=== PATIENT | female | born 1955 | race Caucasian/White ===

== ENCOUNTER → 2017-01-29 | Outpatient (CLI) | payer MEDICARE ==
--- NOTE | 2017-01-30 10:52 | MM ---
Reason for exam: screening (asymptomatic). History: Patient is postmenopausal. Physical Findings: A clinical breast exam by your physician is recommended on an annual basis and results should be correlated with mammographic findings. MG Screening Mammo w CAD Bilateral CC and MLO view(s) were taken. The breast tissue is heterogeneously dense. This may lower the sensitivity of mammography. There is no discrete abnormality. No significant changes when compared with prior studies. ASSESSMENT: Negative, BI-RAD 1 RECOMMENDATION: Routine screening mammogram of both breasts in 1 year.
== END | disposition home or self-care (01) ==
LOC: RADMAMWWP 13:32
PROVIDERS: ATTEND Family Medicine
DX: Z12.31 Encounter for screening mammogram for malignant neoplasm of breast (principal)

== ENCOUNTER → 2018-07-03 | Outpatient (CLI) | payer MEDICARE ==
--- NOTE | 2018-07-04 10:47 | MM ---
Reason for exam: screening (asymptomatic). Last mammogram was performed 1 year and 5 months ago. History: Patient is postmenopausal. Took hormonal contraceptives for 7 months. Physical Findings: A clinical breast exam by your physician is recommended on an annual basis and results should be correlated with mammographic findings. MG 3D Screening Mammo W/Cad Bilateral CC and MLO view(s) were taken. Prior study comparison: January 29, 2017, bilateral MG screening mammo w CAD. The breast tissue is heterogeneously dense. This may lower the sensitivity of mammography. Finding #1: There is a 8 mm equal density (isodense), obscured oval mass in the upper quadrant, central position of the left breast. Finding #2: There are typically benign calcifications in both breasts. There is a chronic nodularity in the left breast, stable. ASSESSMENT: Incomplete: need additional imaging evaluation, BI-RAD 0 RECOMMENDATION: Special view mammogram and ultrasound of the left breast. [facility] will attempt to contact patient to return for supplemental views and ultrasound.
== END | disposition home or self-care (01) ==
LOC: RADMAMWWP 10:55
PROVIDERS: ATTEND Family Medicine
DX: Z12.31 Encounter for screening mammogram for malignant neoplasm of breast (principal)
CPT/HCPCS: 77063; 77067

== ENCOUNTER → 2018-07-17 | Outpatient (CLI) | payer MEDICARE ==
--- NOTE | 2018-07-18 07:53 | MM ---
Reason for exam: additional evaluation requested from abnormal screening. Last mammogram was performed less than 1 month ago. History: Patient is postmenopausal. Took hormonal contraceptives for 7 months. Physical Findings: Nurse did not find any significant physical abnormalities on exam. MG 3D Work Up W/Cad LT Spot compression CC, spot compression MLO, and LM view(s) were taken of the left breast. Prior study comparison: July 03, 2018, bilateral MG 3d screening mammo w/cad. January 29, 2017, bilateral MG screening mammo w CAD. Finding: There is a 4 mm circumscribed round mass in the upper quadrant, anterior position of the left breast that persists on additional views. These results were verbally communicated with the patient and result sheet given to the patient on 07/17/18. ASSESSMENT: Incomplete: need additional imaging evaluation, BI-RAD 0 RECOMMENDATION: Ultrasound of the left breast.
--- NOTE | 2018-07-18 07:54 | USB ---
Reason for exam: additional evaluation requested from abnormal screening. History: Patient is postmenopausal. Took hormonal contraceptives for 7 months. US Breast Workup Limited LT Left limited breast ultrasound including focal area of concern, retroareolar and axilla demonstrates a 0.4 x 0.5 x 0.3cm oval, cystic lesion at 11 o'clock. These results were verbally communicated with the patient and result sheet given to the patient on 07/17/18. ASSESSMENT: Benign, BI-RAD 2 RECOMMENDATION: Return to routine screening mammogram schedule for both breasts.
== END | disposition home or self-care (01) ==
LOC: RADMAMWWP 14:13
PROVIDERS: ATTEND Family Medicine
DX: R92.8 Other abnormal and inconclusive findings on diagnostic imaging of breast (principal)
CPT/HCPCS: 77065; 76642; G0279; 77061

== ENCOUNTER → 2023-08-12 | Outpatient (CLI) | payer MEDICARE | END | disposition home or self-care (01) | LOC: LABWHC1 11:39 | PROVIDERS: ATTEND Family Medicine | DX: I49.9 Cardiac arrhythmia, unspecified (principal); R53.81 Other malaise | CPT/HCPCS: 36415; 93005 ==

== ENCOUNTER → 2023-08-21 | Outpatient (CLI) | payer MEDICARE ==
--- NOTE | 2023-08-23 08:43 | MM ---
Reason for Exam: Screening (asymptomatic). Last mammogram was performed 1 year(s) and 2 month(s) ago. Patient History: Menarche at age 8. First Full-Term at age 17. Hysterectomy at age 26. Postmenopausal. Hormonal Contraceptives for 7 months. Risk Values: Jayleen 5 year model risk: 1.4%. NCI Lifetime model risk: 4.0%. Prior Study Comparison: 07/03/2018 Bilateral Screening Mammogram, [facility]. 07/17/2018 Left Diagnostic Mammogram, [facility]. 06/29/2022 Bilateral MG 3D screening mammo w/cad, [facility]. Tissue Density: There are scattered areas of fibroglandular density. Findings: Analyzed By CAD. Right breast: There is no suspicious group of microcalcifications or new suspicious mass. Left breast: There is no suspicious group of microcalcifications or new suspicious mass. Overall Assessment: Negative, BI-RAD 1 Management: Screening Mammogram of both breasts in [address] [facility] will attempt to contact patient to return for supplemental views and ultrasound if indicated. Patient should continue monthly self-breast exams. A clinical breast exam by your physician is recommended on an annual basis. This exam should not preclude additional follow-up of suspicious palpable abnormalities. Note on Jayleen scores and lifetime risk: 1. A Jayleen score greater than 3% is considered moderate risk. If this is the case, consider specialist referral to assess eligibility for a risk reducing agent. 2. If overall lifetime risk for the development of breast cancer is 20% or higher, the patient may qualify for future screening with alternating mammogram and breast MRI. Electronically signed and approved by: Noel Tellez DO
== END | disposition home or self-care (01) ==
LOC: RADMAMWWP 11:11
PROVIDERS: ATTEND Family Medicine
DX: Z12.31 Encounter for screening mammogram for malignant neoplasm of breast (principal); Z78.0 Asymptomatic menopausal state
CPT/HCPCS: 77063; 77067

== ENCOUNTER 2023-11-06 19:49 | Observation (INO) | payer MEDICARE ==
--- NOTE | 2023-11-06 20:18 | CT ---
EXAMINATION TYPE: CODE STROKE: CT brain wo contr DATE OF EXAM: 11/06/2023 COMPARISON: None HISTORY: 68 year-old female with right side weakness/slurred speech TECHNIQUE: Examination was done in axial plane without intravenous contrast. Coronal and sagittal r econstructions performed. CT DLP: 1141.1 mGycm Automated exposure control for dose reduction was used. FINDINGS: There is no evidence of acute intracranial hemorrhage, acute ischemic changes, mass, mass-effect, or extra-axial fluid collection. There is no effacement of cerebral sulci or basal subarachnoid cister ns. There is no hydrocephalus. There is no midline shift. Dorantes-white matter distinction is preserv ed. Mild white matter hypodensities in both cerebral hemispheres. Trace mucosal thickening ethmoid air cells. Leftward nasal septal deviation. Orbits and globes are in tact. Mastoid air cells are well pneumatized. IMPRESSION: Mild chronic burden of chronic small vessel ischemic disease. No acute intracranial abnormality seen.
[2023-11-06 20:19] LABS: Glucose,Whole Blood 93 mg/dL (70-110)
--- NOTE | 2023-11-06 20:25 | CT ---
EXAMINATION TYPE: CT angio head neck DATE OF EXAM: 11/06/2023 COMPARISON: CT brain same date HISTORY: 68-year-old female right side weakness/ slurred speech TECHNIQUE: Contiguous axial scanning of the head and neck performed with IV Contrast, patient injecte d with 65ml mL of Isovue 370. Coronal/sagittal reconstructions performed. 3-D reconstructions genera aly on a dedicated independent workstation. CT DLP: 1783.2 mGycm Automated exposure control for dose reduction was used. FINDINGS: Neck: Mild atherosclerotic arch calcifications. Conventional arch vessel branching anatomy. The vertebral arteries are codominant and patent throughout the course. The bilateral common carotid arteries are patent. The left internal carotid artery is patent. The right ICA shows atherosclerotic calcification and plaque at the level of the bulb with moderate, just over 50% proximal ICA stenosis, thin cuts series 405 image 242. NASCET criteria is utilized. Head: The bilateral vertebral and basilar artery as well as the remainder of the posterior circulation is p atent. Mild atherosclerotic calcifications within the bilateral carotid siphons. Patent bilateral posterior communicating arteries. The remainder of the anterior circulation is patent. No significant narrowing seen. No aneurysmal change identified. Dural venous sinuses are patent. IMPRESSION: 1. NECK: MODERATE, JUST OVER 50% PROXIMAL RIGHT ICA STENOSIS. 2. HEAD: NO LARGE VESSEL INTRACRANIAL ARTERIAL OCCLUSION, SIGNIFICANT STENOSIS, OR ANEURYSMAL CHANGE IS SEEN.
[2023-11-06 20:29] LABS: Basophils # (A) 0.1 k/uL (0-0.2); Basophils % (A) 1 %; Eosinophils # (A) 0.4 k/uL (0-0.7); Eosinophils % (A) 5 %; HCT 34.5 % (34.0-46.0); HGB 11.2 gm/dL (11.4-16.0); Lymphocytes # (A) 2.6 k/uL (1.0-4.8); Lymphocytes % (A) 34 %; MCH 29.5 pg (25.0-35.0); MCHC 32.4 g/dL (31.0-37.0); MCV 91.3 fL (80.0-100.0); Mean Platelet Volume 7.9; Monocytes # (A) 0.6 k/uL (0-1.0); Monocytes % (A) 7 %; Neutrophils # (A) 3.9 k/uL (1.3-7.7); Neutrophils % (A) 51 %; Platelet Count 277 k/uL (150-450); RBC 3.79 m/uL (3.80-5.40); RDW 13.9 % (11.5-15.5); WBC 7.7 k/uL (3.8-10.6)
[2023-11-06 20:46] LABS: ALT 22 U/L (4-34); African American GFR (CKD) 66 (>60 ml/min/1.73 sqM); Anion Gap 5 mmol/L; Blood Urea Nitrogen 32 mg/dL (7-17); Calcium 8.5 mg/dL (8.4-10.2); Carbon Dioxide 25 mmol/L (22-30); Chloride 106 mmol/L (98-107); Creatine Kinase 107 U/L (30-135); Glucose 90 mg/dL (74-99); Non-African American GFR(CKD) 58 (>60 ml/min/1.73 sqM); Sodium 136 mmol/L (137-145); Total Bilirubin 0.6 mg/dL (0.2-1.3)
[2023-11-06 20:58] LABS: INR 0.9 (<1.2)
[2023-11-06 21:05] LABS: Partial Thromboplastin Time 21.3 sec (22.0-30.0); Prothrombin Time 9.9 sec (10.0-12.5)
--- NOTE | 2023-11-06 21:08 | XR ---
EXAMINATION TYPE: XR chest 2V DATE OF EXAM: 11/06/2023 COMPARISON: None HISTORY: 68-year-old female confusion, altered mental status, right-sided weakness TECHNIQUE: PA and lateral views FINDINGS: Heart borderline in size. Atherosclerotic arch calcifications. Rounded retrocardiac density. No conso lidation or pleural effusion. IMPRESSION: There may be an underlying sizable hiatal hernia. Correlate for any associated symptoms. No definite acute process otherwise seen.
[2023-11-06 21:14] LABS: AST 41 U/L (14-36); Albumin 3.8 g/dL (3.5-5.0); Alkaline Phosphatase 44 U/L (38-126); Potassium 5.5 mmol/L (3.5-5.1); Total Protein 6.4 g/dL (6.3-8.2)
--- NOTE | 2023-11-06 23:21 | ED ---
Neuro HPI - General Chief Complaint: Neuro Symptoms/Deficit Stated Complaint: Stroke Time Seen by Provider: 11/06/23 19:56 Source: EMS Mode of arrival: EMS - History of Present Illness Is the patient presenting with stroke symptoms?: Yes Last Known Well Date: 11/06/23 Last Known Well Time: 19:00 Onset/Timin -: hour(s) Location: speech, right face, right arm History of same: No Place: home Severity: moderate Quality: weak Improves With: none Worsens With: none On Anticoagulants: No Context: sudden onset Associated Symptoms: denies other symptoms - Related Data Home Medications: Home Medications Medication Instructions Recorded Confirmed Omeprazole [PriLOSEC] 20 mg PO DAILY 10/29/13 11/06/23 Loratadine [Claritin] 10 mg PO DAILY 03/31/14 11/06/23 Atorvastatin [Lipitor] 20 mg PO DAILY 11/06/23 11/06/23 Candesartan/Hydrochlorothiazid 1 tab PO DAILY 11/06/23 11/06/23 [Candesartan-Hctz 32-12.5 mg Tb] Ibuprofen [Motrin] 800 mg PO BID 11/06/23 11/06/23 Ibuprofen [Motrin] 800 mg PO DAILY PRN 11/06/23 11/06/23 Magnesium 250 mg PO HS 11/06/23 11/06/23 Multivitamins, Thera [Multivitamin 1 tab PO DAILY 11/06/23 11/06/23 (formulary)] Vision Shield Supplement 1 tab PO DAILY 11/06/23 11/06/23 Vitamin B Complex 1 cap PO DAILY 11/06/23 11/06/23 Vitamin C/Biotin [Hair, Skin and 1 tab PO DAILY 11/06/23 11/06/23 Nails Chew] Allergies/Adverse Reactions: Allergies Allergy/AdvReac Type Severity Reaction Status Date / Time gabapentin [From Neurontin] Allergy Anaphylaxis Verified 11/06/23 20:27 loperamide HCl Allergy Anaphylaxis Verified 11/06/23 20:27 [From Imodium A-D] morphine Allergy HIVES Verified 11/06/23 20:27 nickel [Nickel] Allergy Rash/Hives Verified 11/06/23 20:27 trimethobenzamide HCl Allergy Anaphylaxis Verified 11/06/23 20:27 [From Tigan] codeine AdvReac Nausea & Verified 11/06/23 20:27 Vomiting niacin AdvReac flushing Verified 11/06/23 20:27 Review of Systems ROS Statement: Those systems with pertinent positive or pertinent negative responses have been documented in the HPI. ROS Other: All systems not noted in ROS Statement are negative. Constitutional: Denies: fever, chills, weakness Eyes: Denies: vision change Respiratory: Denies: cough, dyspnea Cardiovascular: Denies: chest pain, palpitations, edema Gastrointestinal: Denies: abdominal pain, vomiting, diarrhea Genitourinary: Denies: dysuria, hematuria Musculoskeletal: Denies: back pain Skin: Denies: rash Neurological: Reports: weakness, other. Denies: headache General Exam General appearance: alert, in no apparent distress Head exam: Present: atraumatic, normocephalic Eye exam: Present: normal appearance. Absent: scleral icterus, conjunctival injection Neck exam: Present: normal inspection Respiratory exam: Present: normal lung sounds bilaterally. Absent: respiratory distress, wheezes, rales, rhonchi, stridor, accessory muscle use Cardiovascular Exam: Present: regular rate, normal rhythm, normal heart sounds. Absent: systolic murmur, diastolic murmur, rubs, gallop GI/Abdominal exam: Present: soft. Absent: distended, tenderness, guarding, rebound, rigid, mass Extremities exam: Present: normal inspection, normal capillary refill. Absent: pedal edema, calf tenderness Back exam: Present: normal inspection. Absent: CVA tenderness (R), CVA tenderness (L) Neurological exam: Present: alert, oriented X3, CN II-XII intact. Absent: motor sensory deficit Skin exam: Present: warm, dry, intact, normal color. Absent: rash Stroke MDM - Lab Data Result diagrams: 11/06/23 20:14 11/06/23 20:14 Lab Results 11/06/23 11/06/23 11/06/23 Range/Units 20:14 20:14 20:14 WBC 7.7 (3.8-10.6) k/uL RBC 3.79 L (3.80-5.40) m/uL Hgb 11.2 L (11.4-16.0) gm/dL Hct 34.5 (34.0-46.0) % MCV 91.3 (80.0-100.0) fL MCH 29.5 (25.0-35.0) pg MCHC 32.4 (31.0-37.0) g/dL RDW 13.9 (11.5-15.5) % Plt Count 277 (150-450) k/uL MPV 7.9 Neutrophils % 51 % Lymphocytes % 34 % Monocytes % 7 % Eosinophils % 5 % Basophils % 1 % Neutrophils # 3.9 (1.3-7.7) k/uL Lymphocytes # 2.6 (1.0-4.8) k/uL Monocytes # 0.6 (0-1.0) k/uL Eosinophils # 0.4 (0-0.7) k/uL Basophils # 0.1 (0-0.2) k/uL PT 9.9 L (10.0-12.5) sec INR 0.9 (<1.2) APTT 21.3 L (22.0-30.0) sec Sodium 136 L (137-145) mmol/L Potassium 5.5 H (3.5-5.1) mmol/L Chloride 106 (98-107) mmol/L Carbon Dioxide 25 (22-30) mmol/L Anion Gap 5 mmol/L BUN 32 H (7-17) mg/dL Creatinine 1.00 (0.52-1.04) mg/dL Est GFR (CKD-EPI)AfAm 66 (>60 ml/min/1.73 sqM) Est GFR (CKD-EPI)NonAf 58 (>60 ml/min/1.73 sqM) Glucose 90 (74-99) mg/dL POC Glucose (mg/dL) (70-110) mg/dL POC Glu Escrow Secretary ID Calcium 8.5 (8.4-10.2) mg/dL Total Bilirubin 0.6 (0.2-1.3) mg/dL AST 41 H (14-36) U/L ALT 22 (4-34) U/L Alkaline Phosphatase 44 (38-126) U/L Creatine Kinase 107 (30-135) U/L Troponin I (0.000-0.034) ng/mL Total Protein 6.4 (6.3-8.2) g/dL Albumin 3.8 (3.5-5.0) g/dL 11/06/23 11/06/23 Range/Units 20:14 20:17 WBC (3.8-10.6) k/uL RBC (3.80-5.40) m/uL Hgb (11.4-16.0) gm/dL Hct (34.0-46.0) % MCV (80.0-100.0) fL MCH (25.0-35.0) pg MCHC (31.0-37.0) g/dL RDW (11.5-15.5) % Plt Count (150-450) k/uL MPV Neutrophils % % Lymphocytes % % Monocytes % % Eosinophils % % Basophils % % Neutrophils # (1.3-7.7) k/uL Lymphocytes # (1.0-4.8) k/uL Monocytes # (0-1.0) k/uL Eosinophils # (0-0.7) k/uL Basophils # (0-0.2) k/uL PT (10.0-12.5) sec INR (<1.2) APTT (22.0-30.0) sec Sodium (137-145) mmol/L Potassium (3.5-5.1) mmol/L Chloride (98-107) mmol/L Carbon Dioxide (22-30) mmol/L Anion Gap mmol/L BUN (7-17) mg/dL Creatinine (0.52-1.04) mg/dL Est GFR (CKD-EPI)AfAm (>60 ml/min/1.73 sqM) Est GFR (CKD-EPI)NonAf (>60 ml/min/1.73 sqM) Glucose (74-99) mg/dL POC Glucose (mg/dL) 93 (70-110) mg/dL POC Glu [employer] Secretary ID Kwasi, Kasia Calcium (8.4-10.2) mg/dL Total Bilirubin (0.2-1.3) mg/dL AST (14-36) U/L ALT (4-34) U/L Alkaline Phosphatase (38-126) U/L Creatine Kinase (30-135) U/L Troponin I <0.012 (0.000-0.034) ng/mL Total Protein (6.3-8.2) g/dL Albumin (3.5-5.0) g/dL Past Medical History Past Medical History: Asthma, Fibromyalgia, GERD/Reflux, Hypertension, Osteoarthritis (OA) Additional Past Medical History / Comment(s): severe seasonal allergies History of Any Multi-Drug Resistant Organisms: None Reported Past Surgical History: Adenoidectomy, Appendectomy, Bladder Surgery, Cholecystectomy, Hernia Repair, Hysterectomy, Joint Replacement, Orthopedic Surgery, Tonsillectomy Additional Past Surgical History / Comment(s): right oophorectomy,knee surg., pelvic surg. after childbirth. RIGHT KNEE REPLACEMENT ON 11/12/13., TOTAL LEFT KNEE REPLACEMENT ON 04/08/14 Past Anesthesia/Blood Transfusion Reactions: No Reported Reaction Additional Past Anesthesia/Blood Transfusion Reaction / Comment(s): spinal didn't take completely in past Past Psychological History: No Psychological Hx Reported Past Alcohol Use History: None Reported Past Drug Use History: None Reported Course Vital Signs 11/06/23 11/06/23 11/06/23 19:50 20:10 22:13 Pulse Rate 92 94 90 Respiratory 18 16 18 Rate Blood Pressure 158/88 147/93 132/93 O2 Sat by Pulse 96 96 95 Oximetry Disposition Clinical Impression: Transient cerebral ischemia Disposition: HOME SELF-CARE Condition: Good Is patient prescribed a controlled substance at d/c from ED?: No Referrals: Philip Lee DO [Primary Care Provider] - 1-2 days
[2023-11-06] MEDS: ASPIRIN 325 MG TAB PO STA (23:35)
[2023-11-06] MEDS: SODIUM CHLORIDE 0.9% 1,000 ML IV SCH (23:37)
[2023-11-07] MEDS: DOCUSATE 100 MG CAP PO SCH (00:31)
[2023-11-07 04:22] LABS: Basophils # (A) 0.1 k/uL (0-0.2); Basophils % (A) 1 %; Eosinophils # (A) 0.3 k/uL (0-0.7); Eosinophils % (A) 4 %; HCT 34.4 % (34.0-46.0); HGB 10.8 gm/dL (11.4-16.0); Lymphocytes # (A) 2.1 k/uL (1.0-4.8); Lymphocytes % (A) 29 %; MCH 28.9 pg (25.0-35.0); MCHC 31.4 g/dL (31.0-37.0); Mean Platelet Volume 7.8; Monocytes # (A) 0.6 k/uL (0-1.0); Monocytes % (A) 8 %; Neutrophils % (A) 55 %; Platelet Count 272 k/uL (150-450); RBC 3.74 m/uL (3.80-5.40); RDW 13.9 % (11.5-15.5); WBC 7.2 k/uL (3.8-10.6)
[2023-11-07 04:31] LABS: African American GFR (CKD) >90 (>60 ml/min/1.73 sqM); Anion Gap 5 mmol/L; Blood Urea Nitrogen 29 mg/dL (7-17); Calcium 8.7 mg/dL (8.4-10.2); Carbon Dioxide 25 mmol/L (22-30); Chloride 107 mmol/L (98-107); Glucose 92 mg/dL (74-99); Magnesium 1.9 mg/dL (1.6-2.3); Non-African American GFR(CKD) 86 (>60 ml/min/1.73 sqM); Sodium 137 mmol/L (137-145)
[2023-11-07] MEDS: ASPIRIN 325 MG TAB PO SCH (08:23)
[2023-11-07 10:24] LABS: Chol/HDL Ratio 2.63 Ratio; LDL Cholesterol,Calculated 77.3 mg/dL (0.0-131.0)
--- NOTE | 2023-11-07 10:53 | P.HPIM ---
History of Present Illness H&P Date: 11/07/23 Chief Complaint: Right sided Weakness, aphasia History of present illness; Danisha Quijano 68-year-old female with past medical history of hypertension hyperlipidemia presents with transient ischemic attack. Patient's symptoms began suddenly last evening around 7 PM with sweating and aphasia and facial motor deficit. She appeared to family with right-sided facial droop, right arm weakness and incoherent mumbling. Symptoms continued for 6 hours it was noted by EMS blood pressure to be 180/100. Vision remained intact and had no reported fall. She had no confusion or headache. Today she is back to her stated baseline with speech and muscle strength. Patient notes strong family history in father with multiple TIA. She reports no other symptoms at this time. Initial lab work done in the ER showed Hgb 10.8, BUN 29, Trop 3x neg Head CT - no acute process, mild chronic burden of small vessel disease CT angiogram head and neck neck slightly greater than 50% proximal right ICA stenosis, had shows no acute process stenosis or aneurysm Chest x-ray - no acute process - EKGno ST elevations or T wave abnormalities or arrhythmia noted Patient admitted to internal medicine service REVIEW OF SYSTEMS: CONSTITUTIONAL: No fever, no malaise, no fatigue. HEENT: No recent visual problems or hearing problems. Denied any sore throat. CARDIOVASCULAR: No chest pain, orthopnea, PND, no palpitations, no syncope. PULMONARY: No shortness of breath, no cough, no hemoptysis. GASTROINTESTINAL: No diarrhea, no nausea, no vomiting, no abdominal pain. NEUROLOGICAL: as per HPI HEMATOLOGICAL: Denies any bleeding or petechiae. GENITOURINARY: Denies any burning micturition, frequency, or urgency. MUSCULOSKELETAL/RHEUMATOLOGICAL: Denies any joint pain, swelling, or any muscle pain. ENDOCRINE: Denies any polyuria or polydipsia. The rest of the 14-point review of systems is negative. PHYSICAL EXAMINATION: GENERAL: The patient is alert and oriented x3, not in any acute distress. Well developed, well nourished. HEENT: Pupils are round and equally reacting to light. EOMI. No scleral icterus. No conjunctival pallor. Normocephalic, atraumatic. No pharyngeal erythema. No thyromegaly. CARDIOVASCULAR: S1 and S2 present. No murmurs, rubs, or gallops. PULMONARY: Chest is clear to auscultation, no wheezing or crackles. ABDOMEN: Soft, nontender, nondistended, normoactive bowel sounds. No palpable organomegaly. MUSCULOSKELETAL: No joint swelling or deformity. EXTREMITIES: No cyanosis, clubbing, or pedal edema. NEUROLOGICAL: Right sided Planter flexion weakness 4/5 strength. Gross neurological examination did not reveal any other focal deficits. SKIN: No rashes. Assessment and plan TIA Head CT - no acute process, mild chronic burden of small vessel disease CT angiogram head and neck neck slightly greater than 50% proximal right ICA stenosis, had shows no acute process stenosis or aneurysm Chest x-ray - no acute process - EKGno ST elevations or T wave abnormalities or arrhythmia noted - Troponin 3 times negative Glucose within normal limits - start aspirin - ordered 2D ECHO Neuro consulted, awaiting recs Chronic conditions # Hypertension - hold home medication for permissive htn #Hyperlipidemia Continue home medication #GERD - continue home medication # Seasonal allergies Continue home medication Monitor vital signs Monitor CBC Monitor CMP Continue telemetry monitoring Labs and medication were reviewed.. Continue same treatment. Continue with symptomatic treatment. Resume home medication. Monitor labs and vitals. DVT and GI prophylaxis. Further recommendations as per clinical course of the patient Dictation was produced using [employer] dictation software. please excuse any grammatical, word or spelling errors. Past Medical History Past Medical History: Asthma, CVA/TIA, Fibromyalgia, GERD/Reflux, Hypertension, Osteoarthritis (OA) Additional Past Medical History / Comment(s): severe seasonal allergies History of Any Multi-Drug Resistant Organisms: None Reported Past Surgical History: Adenoidectomy, Appendectomy, Bladder Surgery, Cholecystectomy, Hernia Repair, Hysterectomy, Joint Replacement, Orthopedic Surgery, Tonsillectomy Additional Past Surgical History / Comment(s): right oophorectomy,knee surg., pelvic surg. after childbirth. RIGHT KNEE REPLACEMENT ON 11/12/13., TOTAL LEFT KNEE REPLACEMENT ON 04/08/14 Past Anesthesia/Blood Transfusion Reactions: No Reported Reaction Additional Past Anesthesia/Blood Transfusion Reaction / Comment(s): spinal didn't take completely in past Past Psychological History: No Psychological Hx Reported Smoking Status: Never smoker Past Alcohol Use History: None Reported Past Drug Use History: None Reported Medications and Allergies Home Medications Medication Instructions Recorded Confirmed Type Omeprazole [PriLOSEC] 20 mg PO DAILY 10/29/13 11/06/23 History Loratadine [Claritin] 10 mg PO DAILY 03/31/14 11/06/23 History Atorvastatin [Lipitor] 20 mg PO DAILY 11/06/23 11/06/23 History Candesartan/Hydrochlorothiazid 1 tab PO DAILY 11/06/23 11/06/23 History [Candesartan-Hctz 32-12.5 mg Tb] Ibuprofen [Motrin] 800 mg PO BID 11/06/23 11/06/23 History Ibuprofen [Motrin] 800 mg PO DAILY PRN 11/06/23 11/06/23 History Magnesium 250 mg PO HS 11/06/23 11/06/23 History Multivitamins, Thera [Multivitamin 1 tab PO DAILY 11/06/23 11/06/23 History (formulary)] Vision Shield Supplement 1 tab PO DAILY 11/06/23 11/06/23 History Vitamin B Complex 1 cap PO DAILY 11/06/23 11/06/23 History Vitamin C/Biotin [Hair, Skin and 1 tab PO DAILY 11/06/23 11/06/23 History Nails Chew] Allergies Allergy/AdvReac Type Severity Reaction Status Date / Time gabapentin [From Neurontin] Allergy Anaphylaxis Verified 11/06/23 20:27 loperamide HCl Allergy Anaphylaxis Verified 11/06/23 20:27 [From Imodium A-D] morphine Allergy HIVES Verified 11/06/23 20:27 nickel [Nickel] Allergy Rash/Hives Verified 11/06/23 20:27 trimethobenzamide HCl Allergy Anaphylaxis Verified 11/06/23 20:27 [From Tigan] codeine AdvReac Nausea & Verified 11/06/23 20:27 Vomiting niacin AdvReac flushing Verified 11/06/23 20:27 Physical Exam Vitals: Vital Signs Temp Pulse Pulse Resp BP BP Pulse Ox 11/07/23 08:30 88 18 11/07/23 08:24 97.4 F L 88 18 125/63 95 11/07/23 04:00 97.8 F 84 18 122/66 95 11/07/23 01:57 84 16 11/07/23 00:58 99 11/07/23 00:00 98.6 F 84 16 123/67 99 11/06/23 23:40 89 16 134/79 99 11/06/23 22:13 90 18 132/93 95 11/06/23 20:10 94 16 147/93 96 11/06/23 19:50 92 18 158/88 96 Intake and Output 11/06/23 11/07/23 11/07/23 22:59 06:59 14:59 Intake Total 250 Balance 250 Intake: Oral 250 Other: Voiding Method Toilet Toilet # Voids 1 Weight 101.287 kg 99.3 kg Results CBC & Chem 7: 11/07/23 03:50 11/07/23 03:50 Labs: Abnormal Lab Results - Last 24 Hours (Table) 11/06/23 11/06/23 11/06/23 Range/Units 20:14 20:14 20:14 RBC 3.79 L (3.80-5.40) m/uL Hgb 11.2 L (11.4-16.0) gm/dL PT 9.9 L (10.0-12.5) sec APTT 21.3 L (22.0-30.0) sec Sodium 136 L (137-145) mmol/L Potassium 5.5 H (3.5-5.1) mmol/L BUN 32 H (7-17) mg/dL AST 41 H (14-36) U/L HDL Cholesterol (40.00-60.00) mg/dL 11/07/23 11/07/23 Range/Units 03:50 03:50 RBC 3.74 L (3.80-5.40) m/uL Hgb 10.8 L (11.4-16.0) gm/dL PT (10.0-12.5) sec APTT (22.0-30.0) sec Sodium (137-145) mmol/L Potassium (3.5-5.1) mmol/L BUN 29 H (7-17) mg/dL AST (14-36) U/L HDL Cholesterol 61.70 H (40.00-60.00) mg/dL Thrombosis Risk Factor Assmnt - Choose All That Apply Any of the Below Risk Factors Present?: Yes Each Factor Represents 1 point: Obesity (BMI >25) Other Risk Factors: Yes Each Risk Factor Represents 2 Points: Age 61-74 years Other congenital or acquired thrombophilia - If yes, enter type in comment: No Thrombosis Risk Factor Assessment Total Risk Factor Score: 3 Thrombosis Risk Factor Assessment Level: Moderate Risk Assessment and Plan (1) Transient cerebral ischemia Current Visit: Yes Status: Acute Code(s): G45.9 - TRANSIENT CEREBRAL ISCHEMIC ATTACK, UNSPECIFIED SNOMED Code(s): 680327982
[2023-11-07] MEDS: ACETAMINOPHEN TAB 325 MG TAB PO PRN (12:56)
--- NOTE | 2023-11-07 14:08 | CT ---
EXAMINATION TYPE: CT lumbar spine wo con CT DLP: 1328.2 mGycm, Automated exposure control for dose reduction was used. DATE OF EXAM: 11/07/2023 1:30 PM COMPARISON: None. CLINICAL INDICATION:Female, 68 years old with history of low back pain with leg weakness; PHH, back p ain TECHNIQUE: Multiple axial images were obtained from the midportion of T11 through the sacroiliac leonor nts. Soft tissue and bone windows in coronal and sagittal planes were obtained and reviewed. Contrast used: mL of , (None, if empty). Oral contrast used: (None, if empty). FINDINGS: Alignment: There are 5 lumbar type vertebral bodies with grade 1 anterolisthesis of L4 on L5 alignmen t.. Bone: No evidence of fracture is identified. Multilevel degeneration changes with osteophyte formati on, disc space narrowing, facet joint arthropathy. Discs: T12-L1: No spinal canal or neural foraminal stenosis is identified. L1-L2: No spinal canal or neural foraminal stenosis is identified. L2-L3: No spinal canal or neural foraminal stenosis is identified. L3-L4: No spinal canal or neural foraminal stenosis is identified. L4-L5: Grade 1 anterolisthesis with facet arthropathy and disc bulging result with mild spinal canal stenosis and mild bilateral neural foraminal stenosis. L5-S1: Facet joint arthropathy and disc bulging result with mild spinal canal stenosis and moderate l eft and mild right bilateral neural foraminal stenosis. Other: Scattered colonic diverticula. Nonobstructing left renal calculi partially in the [id number] w. IMPRESSION: 1. No evidence for spinal fracture. 2. Grade 1 anterolisthesis of L4 and L5 no evidence for spondylolysis. 3. Mild multilevel degeneration changes of the spine.
--- NOTE | 2023-11-07 14:35 | P.CNNES ---
History of Present Illness Consult date: 11/07/23 Requesting physician: Jm Humphrey Reason for Consult: stroke History of Present Illness: This is a 68-year-old woman who presented emergency department because of speech difficulty. Stated that yesterday around 7 PM she felt very sweaty over the face throughout the body and then had difficulty getting her words out even though she knew what she wanted to say. Also she was notified by her family member that she was having a blank stare. Therefore EMS was called and was soon she was eval by EMS she had right facial droop and right arm weakness that was felt by EMS. Denies any history of stroke in the past. She states she has chronic lower back pain and her is buckle and she was eval by Dr. Haile in the past and she had EMG and was told she had nerve damage and to continue with therapy. She had bilateral knee replacement. She continues to have leg weakness due to the buckling of her legs. Denies of chronic lower back pain. Denies of urinary or bowel incontinence. Denies any loss of consciousness is with her leg weakness denies any history of seizure. She does have underlying history of hypertension, hyperlipidemia. She is not on any antiplatelets. She is a former tobacco use and last use was 1998. She feels her symptoms has resolved. Some of the workup during this hospital visit consisted of: Lipid panel as triglyceride is 115, cholesterol 162, LDL 77 and HDL is 61 Calcium, magnesium, creatinine are within normal limits. Most recent sodium is 137. CT of the head is reported as mild chronic burden of chronic small vessel ischemic disease. No acute intracranial abnormality seen. I personally reviewed the CT and agree with the report. CT Angiography of the head is reported as no large vessel intracranial arterial occlusion, significant stenosis or aneurysm changes seen. CT angiography of the neck read as moderate just over 50% proximal right ICA stenosis. ED team seems the patient had transient ischemic attack since it was felt her symptoms has resolved. Neuro IV thrombolytics since the patient's symptoms has improved and risk outweigh the benefit. Review of Systems The positive and negative as per HPI. Past Medical History Past Medical History: Asthma, CVA/TIA, Fibromyalgia, GERD/Reflux, Hypertension, Osteoarthritis (OA) Additional Past Medical History / Comment(s): severe seasonal allergies History of Any Multi-Drug Resistant Organisms: None Reported Past Surgical History: Adenoidectomy, Appendectomy, Bladder Surgery, Cholecystectomy, Hernia Repair, Hysterectomy, Joint Replacement, Orthopedic Surgery, Tonsillectomy Additional Past Surgical History / Comment(s): right oophorectomy,knee surg., pelvic surg. after childbirth. RIGHT KNEE REPLACEMENT ON 11/12/13., TOTAL LEFT KNEE REPLACEMENT ON 04/08/14 Past Anesthesia/Blood Transfusion Reactions: No Reported Reaction Additional Past Anesthesia/Blood Transfusion Reaction / Comment(s): spinal d idn't take completely in past Past Psychological History: No Psychological Hx Reported Smoking Status: Never smoker Past Alcohol Use History: None Reported Past Drug Use History: None Reported Medications and Allergies Home Medications Medication Instructions Recorded Confirmed Type Omeprazole [PriLOSEC] 20 mg PO DAILY 10/29/13 11/06/23 History Loratadine [Claritin] 10 mg PO DAILY 03/31/14 11/06/23 History Atorvastatin [Lipitor] 20 mg PO DAILY 11/06/23 11/06/23 History Candesartan/Hydrochlorothiazid 1 tab PO DAILY 11/06/23 11/06/23 History [Candesartan-Hctz 32-12.5 mg Tb] Ibuprofen [Motrin] 800 mg PO BID 11/06/23 11/06/23 History Ibuprofen [Motrin] 800 mg PO DAILY PRN 11/06/23 11/06/23 History Magnesium 250 mg PO HS 11/06/23 11/06/23 History Multivitamins, Thera [Multivitamin 1 tab PO DAILY 11/06/23 11/06/23 History (formulary)] Vision Shield Supplement 1 tab PO DAILY 11/06/23 11/06/23 History Vitamin B Complex 1 cap PO DAILY 11/06/23 11/06/23 History Vitamin C/Biotin [Hair, Skin and 1 tab PO DAILY 11/06/23 11/06/23 History Nails Chew] Allergies Allergy/AdvReac Type Severity Reaction Status Date / Time gabapentin [From Neurontin] Allergy Anaphylaxis Verified 11/06/23 20:27 loperamide HCl Allergy Anaphylaxis Verified 11/06/23 20:27 [From Imodium A-D] morphine Allergy HIVES Verified 11/06/23 20:27 nickel [Nickel] Allergy Rash/Hives Verified 11/06/23 20:27 trimethobenzamide HCl Allergy Anaphylaxis Verified 11/06/23 20:27 [From Tigan] codeine AdvReac Nausea & Verified 11/06/23 20:27 Vomiting niacin AdvReac flushing Verified 11/06/23 20:27 Physical Examination - Vital Signs Vital Signs: Vital Signs Temp Pulse Pulse Resp BP BP Pulse Ox 11/07/23 11:42 72 18 120/67 97 11/07/23 08:30 88 18 11/07/23 08:24 97.4 F L 88 18 125/63 95 11/07/23 04:00 97.8 F 84 18 122/66 95 11/07/23 01:57 84 16 11/07/23 00:58 99 11/07/23 00:00 98.6 F 84 16 123/67 99 11/06/23 23:40 89 16 134/79 99 11/06/23 22:13 90 18 132/93 95 11/06/23 20:10 94 16 147/93 96 11/06/23 19:50 92 18 158/88 96 Intake and Output 11/06/23 11/07/23 11/07/23 22:59 06:59 14:59 Intake Total 250 118 Balance 250 118 Intake: Oral 250 118 Other: Voiding Method Toilet Toilet # Voids 1 Weight 101.287 kg 99.3 kg GENERAL: The patient is Sitting in a recliner chair and is not in acute distress. NEUROLOGICAL: Higher mental function: The patient is awake, alert, oriented to self, place and time. Patient is following commands. No aphasia and no neglect. Cranial nerves: The pupils are round, equal and reactive to light and accommodation. Visual glover are full to confrontation throughout. Extraocular movement is intact no nystagmus is noted. Facial sensation is normal to touch throughout. The facial strength is normal throughout. Hearing is normal bilaterally to hand rub. Tongue is midline and moved [id number] without any difficulty. No dysarthria is noted. Shoulder shrug is normal bilaterally. Motor: The strength is right lower extremity is 4+. Otherwise 5 over 5 throughout. Normal tone and bulk. Cerebellum: Normal finger to nose bilaterally. Sensation: Sensation is normal to touch throughout. Reflexes (right/left): 2+ throughout. Plantars are downgoing bilaterally. Results - Laboratory Findings CBC and BMP: 11/07/23 03:50 11/07/23 03:50 Abnormal Lab Findings: Abnormal Labs 11/06/23 11/06/23 11/06/23 20:14 20:14 20:14 RBC 3.79 L Hgb 11.2 L PT 9.9 L APTT 21.3 L Sodium 136 L Potassium 5.5 H BUN 32 H AST 41 H HDL Cholesterol 11/07/23 11/07/23 03:50 03:50 RBC 3.74 L Hgb 10.8 L PT APTT Sodium Potassium BUN 29 H AST HDL Cholesterol 61.70 H Assessment and Plan Assessment: This is a 68-year-old woman who present emergency department because of yesterday she felt she was sweating at around 7 PM and then difficulty getting her words out as well as was told by her family members she had a blank stare. When she was eval by EMS she had right arm weakness and right facial droop. Symptoms has improved but on my examination she had right lower extremity weakness. Probable acute ischemic stroke with symptoms of expressive aphasia, right facial droop and right-sided weakness and the patient continues to have right lower extremity weakness. Mild to moderate Right ICA stenosis of just above 50% on CTA. This is asymptomatic and would not contribute patient's symptoms. Recurrent leg weakness and states has buckling of her feet and she had workup as an outpatient with EMG and was told she had nerve damage by her outpatient neurologist and feels there is improvement with physical therapy Bilateral knee replacement Underlying history of hypertension Hyperlipidemia Ex tobacco use and last use was 1998 Plan: Patient was given aspirin 325 once in the ED. Then was started on aspirin 325 daily. I started the patient on Plavix 75 mg daily. Prior to this the patient was not on any antiplatelet. Patient was started on Lipitor 20 mg daily but I increased it to 40 mg daily for secondary stroke prophylaxis I changed the order of MRI from without to with and without 2D echo was ordered and is pending Hemoglobin A1c is ordered I ordered CT lumbar spine since the patient continues to have right lower extremity weakness to rule out any severe stenosis in the lumbar region especially with the recurrent leg weakness. Also because of her episode of blank stare was notified by yesterday by her family member I ordered a routine EEG to assess if there is any discharges or seizure Continue neurochecks Cardiac monitoring PT OT and MARITIME PILOT are consulted Will defer the rest of the medical management to primary team For DVT prophylaxis I started the patient on subcu heparin 5000 units every 12 hours Plan discussed with the patient and her at bedside Thank for the consultation Time with Patient: Greater than 30
[2023-11-07] MEDS: CLOPIDOGREL 75 MG TAB PO SCH (15:38)
[2023-11-07] MEDS: LORATADINE 10 MG TAB PO SCH (15:38)
[2023-11-07] MEDS: ATORVASTATIN 20 MG TAB PO SCH (16:39)
[2023-11-07] MEDS: MAGNESIUM OXIDE 400 MG TAB PO SCH (20:15)
[2023-11-07] MEDS: HEPARIN SODIUM,PORCINE 5,000 UNIT/ML 1 ML VIAL SQ SCH (20:15)
--- NOTE | 2023-11-08 01:37 | EEG ---
ELECTROENCEPHALOGRAM REPORT CLINICAL HISTORY: This is a 68-year-old woman with episode of blank stare and confusion. The video EEG is obtained to evaluate for seizure epileptiform activity. RELEVANT MEDICATION: The patient is not on any antiepileptic drugs. DESCRIPTION: Wakefulness and drowsiness are obtained. During awake state, the posterior- dominant rhythm consists of [id number] voltage of 9.5 to 10 hertz activity that is well modulated and well sustained. There is no physiological stage 2 sleep architecture. There is no focal slowing. Interictal and ictal is none. ACTIVATION PROCEDURE: Photic stimulation did not evoke a posterior driving response. There is no abnormality during the photic stimulation. Hyperventilation is not performed. CLINICAL INTERPRETATION: This is a normal routine EEG. There is no focal slowing, epileptiform discharge, or seizure on the EEG. A normal routine EEG does not rule out an underlying epilepsy. Clinical correlation is recommended. MONAE / YOLY: [id number] / MTDD
[2023-11-08] MEDS: PANTOPRAZOLE 40 MG TABLET PO SCH (06:17)
[2023-11-08] MEDS: FOLIC ACID-VIT B COMPLEX-VIT C 1 CAP PO SCH (08:19)
[2023-11-08] MEDS: ATORVASTATIN 40 MG TAB PO SCH (08:19)
[2023-11-08 08:32] LABS: Basophils # (A) 0.1 k/uL (0-0.2); Basophils % (A) 1 %; Eosinophils # (A) 0.3 k/uL (0-0.7); Eosinophils % (A) 5 %; HCT 36.9 % (34.0-46.0); HGB 12.1 gm/dL (11.4-16.0); Lymphocytes # (A) 1.6 k/uL (1.0-4.8); Lymphocytes % (A) 32 %; MCHC 32.7 g/dL (31.0-37.0); MCV 91.7 fL (80.0-100.0); Mean Platelet Volume 7.6; Monocytes # (A) 0.4 k/uL (0-1.0); Monocytes % (A) 7 %; Neutrophils # (A) 2.6 k/uL (1.3-7.7); Neutrophils % (A) 52 %; Platelet Count 298 k/uL (150-450); RBC 4.03 m/uL (3.80-5.40); RDW 13.9 % (11.5-15.5); WBC 5.1 k/uL (3.8-10.6)
[2023-11-08 08:53] LABS: ALT 48 U/L (4-34); AST 52 U/L (14-36); African American GFR (CKD) >90 (>60 ml/min/1.73 sqM); Albumin 3.9 g/dL (3.5-5.0); Alkaline Phosphatase 67 U/L (38-126); Anion Gap 4 mmol/L; Blood Urea Nitrogen 24 mg/dL (7-17); Carbon Dioxide 26 mmol/L (22-30); Chloride 107 mmol/L (98-107); Glucose 88 mg/dL (74-99); Non-African American GFR(CKD) 84 (>60 ml/min/1.73 sqM); Potassium 4.3 mmol/L (3.5-5.1); Sodium 137 mmol/L (137-145); Total Bilirubin 0.5 mg/dL (0.2-1.3); Total Protein 6.4 g/dL (6.3-8.2)
[2023-11-08] MEDS ORDERED: NON FORMULARY DRUG (Vitamin C/Biotin [Hair, Skin And Nails Chew] 1 EACH Tab.Chew) PO SCH (09:00)
--- NOTE | 2023-11-08 09:43 | P.PN ---
Subjective Progress Note Date: 11/08/23 Principal diagnosis: TIA Danisha Quijano 68-year-old female with past medical history of hypertension, hyperlipidemia presents with transient ischemic attack. Patient's symptoms bega n suddenly last evening around 7 PM with sweating and aphasia and facial motor deficit. She appeared to family with right-sided facial droop, right arm weakness and incoherent mumbling. Symptoms continued for 6 hours it was noted by EMS blood pressure to be 180/100. Vision remained intact and had no reported fall. She had no confusion or headache. Today she is back to her stated baseline with speech and muscle strength. Patient notes strong family history in father with multiple TIA. She reports no other symptoms at this time. 11-08-23 Patient seen at bedside, no further episodes of weakness, or aphasia. No other complaints. She is awaiting Echo and MR hetal. REVIEW OF SYSTEMS: All Systems reviewed and pertinent positives and negatives noted in HPI, all other symptoms are negative The rest of the 14-point review of systems is negative. PHYSICAL EXAMINATION: GENERAL: The patient is alert and oriented x3, not in any acute distress. Well developed, well nourished. HEENT: Pupils are round and equally reacting to light. EOMI. No scleral icterus. No conjunctival pallor. Normocephalic, atraumatic. No pharyngeal erythema. No thyromegaly. CARDIOVASCULAR: S1 and S2 present. No murmurs, rubs, or gallops. PULMONARY: Chest is clear to auscultation, no wheezing or crackles. ABDOMEN: Soft, nontender, nondistended, normoactive bowel sounds. No palpable organomegaly. MUSCULOSKELETAL: No joint swelling or deformity. EXTREMITIES: No cyanosis, clubbing, or pedal edema. NEUROLOGICAL: Right sided Planter flexion weakness 4/5 strength. Gross neurological examination did not reveal any other focal deficits. SKIN: No rashes. Assessment and plan TIA Head CT - no acute process, mild chronic burden of small vessel disease CT angiogram head and neck neck slightly greater than 50% proximal right ICA stenosis, had shows no acute process stenosis or aneurysm Chest x-ray - no acute process - EKGno ST elevations or T wave abnormalities or arrhythmia noted - Troponin 3 times negative Glucose within normal limits, HbA1c 5.7 - start aspirin, plavix, and increase Lipitor, per neuro - CT [place] spine for LE weakness no acute process - EEG - normal - 2D ECHO - no acute process - awaiting MR brain - RLE weakness, PT OT and SET KEY DRIVER are consulted - Neuro following Chronic conditions # Hypertension - hold home medication for permissive htn - continue lisinopril if MR brain is non revealing #Hyperlipidemia Continue home medication #GERD - continue home medication # Seasonal allergies Continue home medication Attestation I have seen and examined this patient with my resident , discussed the same with the resident/LIVAN, and agree with the dictator's assessment and plan as written MRI brain pending PT and OT pending If MRI brain is negative for acute stroke, resume home blood pressure medication Dr. Gpoi daniels Labs and medication were reviewed.. Continue same treatment. Continue with symptomatic treatment. Resume home medication. Monitor labs and vitals. DVT and GI prophylaxis. Further recommendations as per clinical course of the patient Dictation was produced using [employer] dictation software. please excuse any grammatical, word or spelling errors. Objective - Vital Signs Vital signs: Vital Signs Temp 98.0 F 11/07/23 20:18 Pulse 74 11/08/23 03:49 Resp 18 11/08/23 03:49 BP 109/68 11/08/23 03:49 Pulse Ox 95 11/08/23 03:49 FiO2 Intake & Output 11/07/23 11/08/23 11/08/23 18:59 06:59 18:59 Intake Total 358 540 Balance 358 540 Intake: Oral 358 540 Other: Voiding Method Toilet Toilet # Voids 3 1 - Labs CBC & Chem 7: 11/08/23 07:10 11/08/23 07:10 Labs: Abnormal Lab Results - Last 24 Hours (Table) 11/07/23 Range/Units 03:50 HDL Cholesterol 61.70 H (40.00-60.00) mg/dL Assessment and Plan (1) Transient cerebral ischemia Current Visit: Yes Status: Acute Code(s): G45.9 - TRANSIENT CEREBRAL ISCHEMIC ATTACK, UNSPECIFIED SNOMED Code(s): 429288946
--- NOTE | 2023-11-08 10:58 | CA ---
Transthoracic Echo Report Name: Danisha Quijano Age: 68 Gender: F : 1955 Exam Date: 11/08/2023 08:24 Exam Location: [facility] Ht (in): 67 Wt (lb): 218 Ordering Physician: Gopi Diaz MD Attending/Referring Phys: Senior Interior Designer Marry Stiles RDCS Procedure CPT: Indications: Slurred speech, CVA Cardiac Hx: Technical Quality: Good Contrast 1: Total Dose (mL): Contrast 2: Total Dose (mL): MEASUREMENTS (Male / Female) Normal Values 2D ECHO LV Diastolic Diameter PLAX 4.1 cm 4.2 - 5.9 / 3.9 - 5.3 cm LV Systolic Diameter PLAX 2.8 cm IVS Diastolic Thickness 1.3 cm 0.6 - 1.0 / 0.6 - 0.9 cm LVPW Diastolic Thickness 1.3 cm 0.6 - 1.0 / 0.6 - 0.9 cm LV Relative Wall Thickness 0.6 RV Internal Dim ED PLAX 2.2 cm LA Systolic Diameter LX 3.7 cm 3.0 - 4.0 / 2.7 - 3.8 cm LV Diastolic Volume MOD BP 46.6 cm??? 67 - 155 / 56 - 104 cm??? LV Systolic Volume MOD BP 22.5 cm??? 22 - 58 / 19 - 49 cm??? LV Ejection Fraction MOD BP 51.7 % >= 55 % LV Cardiac Index MOD BP 908.6 cm???/min???m??? LV Diastolic Volume MOD 4C 54.9 cm??? LV Systolic Volume MOD 4C 24.6 cm??? LV Ejection Fraction MOD 4C 55.2 % LV Cardiac Index MOD 4C 1144.0 cm???/min???m??? LV Diastolic Length 4C 7.0 cm LV Systolic Length 4C 5.6 cm LV Diastolic Volume MOD 2C 39.0 cm??? LV Systolic Volume MOD 2C 21.0 cm??? LV Ejection Fraction MOD 2C 46.2 % LV Cardiac Index MOD 2C 680.3 cm???/min???m??? LV Diastolic Length 2C 6.7 cm LV Systolic Length 2C 5.6 cm M-MODE Aortic Root Diameter MM 3.1 cm LA Systolic Diameter MM 4.0 cm LA Ao Ratio MM 1.3 AV Cusp Separation MM 2.0 cm DOPPLER Mitral E Point Velocity 62.1 cm/s Mitral A Point Velocity 70.2 cm/s Mitral E to A Ratio 0.9 MV Deceleration Time 268.0 ms MV E' Velocity 8.2 cm/s Mitral E to MV E' Ratio 7.6 TR Peak Velocity 287.7 cm/s TR Peak Gradient 33.1 mmHg Right Ventricular Systolic Press 38.2 mmHg FINDINGS Left Ventricle Left ventricular ejection fraction is estimated at 55-60 %.Mildly increased left ventricular wall thickness. No obvious regional wall motion abnormalities. Left ventricular cavity size normal. Right Ventricle Mild right ventricular dilatation. Mild pulmonary hypertension. Right Atrium Moderate right atrial dilatation. Left Atrium Mild left atrial dilatation. Mitral Valve Structurally normal mitral valve. No mitral stenosis. Mild mitral regurgitation. Aortic Valve Trileaflet aortic valve. No aortic regurgitation. No aortic stenosis. Tricuspid Valve Structurally normal tricuspid valve. Mild to moderate tricuspid regurgitation. Pulmonic Valve Structurally normal pulmonic valve. No pulmonic stenosis. Pericardium No pericardial or pleural effusion. Aorta Normal size aortic root and proximal ascending aorta. CONCLUSIONS 1. Normal left ventricular size and systolic function 2. Mild mitral with mild to moderate tricuspid regurgitation and mild to moderate hypertension Previewed by: Dr. Sigifredo Curtis MD (Electronically Signed) Final Date: 08 November 2023 10:57
--- NOTE | 2023-11-08 13:07 | P.PN ---
Subjective Progress Note Date: 11/08/23 I am following-up with patient and states she continues to have weakness in the right lower extremity. Denies any new neurological issues. Objective - Vital Signs Vital signs: Vital Signs Temp 98.0 F 11/07/23 20:18 Pulse 81 11/08/23 12:00 Resp 16 11/08/23 12:00 BP 138/78 11/08/23 12:00 Pulse Ox 95 11/08/23 12:00 FiO2 Intake & Output 11/07/23 11/08/23 11/08/23 18:59 06:59 18:59 Intake Total 358 540 Balance 358 540 Intake: Oral 358 540 Other: Voiding Method Toilet Toilet Toilet # Voids 3 1 - Exam GENERAL: The patient is Sitting in a recliner chair and is not in acute distress. NEUROLOGICAL: Higher mental function: The patient is awake, alert, oriented to self, place and time. Patient is following commands. No aphasia and no neglect. Cranial nerves: The pupils are round, equal and reactive to light and accommodation. Visual glover are full to confrontation throughout. Extraocular movement is intact no nystagmus is noted. Facial sensation is normal to touch throughout. The facial strength is normal throughout. Hearing is normal bilaterally to hand rub. Tongue is midline and moved [id number] without any difficulty. No dysarthria is noted. Shoulder shrug is normal bilaterally. Motor: The strength is right lower extremity is 4+. Otherwise 5 over 5 throughout. Normal tone and bulk. Cerebellum: Normal finger to nose bilaterally. Sensation: Sensation is normal to touch throughout. Reflexes (right/left): 2+ throughout. Plantars are downgoing bilaterally. Some of the workup during this hospital visit consisted of: Lipid panel as triglyceride is 115, cholesterol 162, LDL 77 and HDL is 61 HbA1c: 5.7 CT of the head is reported as mild chronic burden of chronic small vessel ischemic disease. No acute intracranial abnormality seen. I personally reviewed the CT and agree with the report. CT Angiography of the head is reported as no large vessel intracranial arterial occlusion, significant stenosis or aneurysm changes seen. CT angiography of the neck read as moderate just over 50% proximal right ICA stenosis. CT lumbar: No evidence for spinal fracture. Grade 1 anterolisthesis of L4 and L5 no evidence for spondylosis. Mild multilevel degeneration changes of the spine. Routine EEG: Normal. 2D echo: Normal left ventricular size and systolic function. Mild mitral with mild to moderat tricuspid regurgitation and mild to moderate hypertension. - Labs CBC & Chem 7: 11/08/23 07:10 11/08/23 07:10 Labs: Abnormal Lab Results - Last 24 Hours (Table) 11/08/23 Range/Units 07:10 BUN 24 H (7-17) mg/dL AST 52 H (14-36) U/L ALT 48 H (4-34) U/L Assessment and Plan Assessment: This is a 68-year-old woman who present emergency department because of yesterday she felt she was sweating at around 7 PM and then difficulty getting her words out as well as was told by her family members she had a blank stare. When she was eval by EMS she had right arm weakness and right facial droop. Symptoms has improved but on my examination she had right lower extremity weak ness. Probable acute ischemic stroke with symptoms of expressive aphasia, right facial droop and right-sided weakness and the patient continues to have right lower extremity weakness. CT lumbar does not explain her right lower extremity weakness. Mild to moderate Right ICA stenosis of just above 50% on CTA. This is asymptomatic and would not contribute patient's symptoms. Recurrent leg weakness and states has buckling of her feet and she had workup as an outpatient with EMG and was told she had nerve damage by her outpatient neurologist and feels there is improvement with physical therapy Bilateral knee replacement Underlying history of hypertension Hyperlipidemia Ex tobacco use and last use was 1998 Plan: Continue aspirin 325mg daily and Plavix 75 mg daily. Prior to this the patient was not on any antiplatelet. Continue Lipitor 40 mg daily for secondary stroke prophylaxis MRI from without to with and without pending Continue neurochecks Cardiac monitoring PT OT and WOVEN BLIND LOOM TENDER are consulted Will defer the rest of the medical management to primary team For DVT prophylaxis: On subcu heparin 5000 units every 12 hours Plan discussed with the patient, her who is at bedside and primary team. Time with Patient: Less than 30
--- NOTE | 2023-11-08 18:56 | MR ---
EXAMINATION TYPE: MR brain wo/w con DATE OF EXAM: 11/08/2023 6:32 PM CLINICAL INDICATION:Female, 68 years old with history of right sided weakness with expressive aphasia . cva; PHH, Right sided weakness with expressive aphasia, CVA, COMPARISON: 11/06/2023 TECHNIQUE: Multi planar, multi sequence imaging was performed through the brain including: T1, T2, In version recovery, susceptibility weighted imaging and gradient echo imaging and Diffusion weighted im aging. The patient was then given intravenous contrast and multi planar, T1 fat-saturation images wer e obtained. IV Contrast: 10 cc Gadavist FINDINGS: The knox-white junctions, ventricular system, basal cisterns appear unremarkable. Diffusion-weighted imaging shows no evidence of restricted diffusion to suggest acute/subacute infarct. Intracranial ar terial flow voids are maintained. Midline structures show no abnormality. Scattered foci of high T2 s ignal intensity are seen within the periventricular white matter. The susceptibility weighted images do not reveal any evidence for micro-hemorrhage. After administration of gadolinium, no abnormal enha ncement is seen. The bone marrow signal is within normal limits. Paranasal sinuses and mastoid air cells: No significant paranasal sinus disease. Visualized orbits: Orbital contents are intact. IMPRESSION: 1. No evidence of intracranial mass, acute/subacute infarct, or abnormal enhancement. 2. Nonspecific white matter changes, likely related to small vessel ischemic disease.
[2023-11-09 08:01] VITALS: RESP 16; TEMP 97
--- NOTE | 2023-11-09 08:37 | P.PN ---
Subjective Progress Note Date: 11/09/23 Principal diagnosis: TIA Danisha Quijano 68-year-old female with past medical history of hypertension, hyperlipidemia presents with transient ischemic attack. Patient's symptoms bega n suddenly last evening around 7 PM with sweating and aphasia and facial motor deficit. She appeared to family with right-sided facial droop, right arm weakness and incoherent mumbling. Symptoms continued for 6 hours it was noted by EMS blood pressure to be 180/100. Vision remained intact and had no reported fall. She had no confusion or headache. Today she is back to her stated baseline with speech and muscle strength. Patient notes strong family history in father with multiple TIA. She reports no other symptoms at this time. 11-08-23 Patient seen at bedside, no further episodes of weakness, or aphasia. No other complaints. She is awaiting Echo and MR hetal. 11-09-23 Patient seen at bedside, no further episodes of weakness, or aphasia. No other complaints. Echo and MR brain resulted normal. REVIEW OF SYSTEMS: All Systems reviewed and pertinent positives and negatives noted in HPI, all other symptoms are negative The rest of the 14-point review of systems is negative. PHYSICAL EXAMINATION: GENERAL: The patient is alert and oriented x3, not in any acute distress. Well d eveloped, well nourished. HEENT: Pupils are round and equally reacting to light. EOMI. No scleral icterus. No conjunctival pallor. Normocephalic, atraumatic. No pharyngeal erythema. No thyromegaly. CARDIOVASCULAR: S1 and S2 present. No murmurs, rubs, or gallops. PULMONARY: Chest is clear to auscultation, no wheezing or crackles. ABDOMEN: Soft, nontender, nondistended, normoactive bowel sounds. No palpable organomegaly. MUSCULOSKELETAL: No joint swelling or deformity. EXTREMITIES: No cyanosis, clubbing, or pedal edema. NEUROLOGICAL: Right sided Planter flexion weakness 4/5 strength. Gross neurological examination did not reveal any other focal deficits. SKIN: No rashes. Assessment and plan TIA Head CT - no acute process, mild chronic burden of small vessel disease CT angiogram head and neck neck slightly greater than 50% proximal right ICA stenosis, had shows no acute process stenosis or aneurysm Chest x-ray - no acute process - EKGno ST elevations or T wave abnormalities or arrhythmia noted - Troponin 3 times negative Glucose within normal limits, HbA1c 5.7 - start aspirin, plavix, and increase Lipitor, per neuro - CT [place] spine for LE weakness no acute process - EEG - normal - 2D ECHO - no acute process - MR brain - no acute process - RLE weakness, PT OT and CAGE TENDER are consulted - Neuro following Chronic conditions # Hypertension - hold home medication for permissive htn - continue lisinopril #Hyperlipidemia Continue home medication #GERD - continue home medication # Seasonal allergies Continue home medication Monitor vital signs Monitor CBC Monitor CMP Continue telemetry monitoring Labs and medication were reviewed.. Continue same treatment. Continue with symptomatic treatment. Resume home medication. Monitor labs and vitals. DVT and GI prophylaxis. Further recommendations as per clinical course of the patient Dictation was produced using [employer] dictation software. please excuse any grammatical, word or spelling errors. Objective - Vital Signs Vital signs: Vital Signs Temp 97.0 F L 11/09/23 08:00 Pulse 82 11/09/23 08:01 Resp 16 11/09/23 08:01 BP 113/74 11/09/23 08:00 Pulse Ox 95 11/09/23 08:00 FiO2 Intake & Output 11/08/23 11/09/23 11/09/23 18:59 06:59 18:59 Intake Total 218 540 Balance 218 540 Weight 99.1 kg Intake: Oral 218 540 Other: Voiding Method Toilet Toilet Toilet # Voids 3 2 - Labs CBC & Chem 7: 11/08/23 07:10 11/08/23 07:10 Labs: Abnormal Lab Results - Last 24 Hours (Table) 11/08/23 Range/Units 07:10 BUN 24 H (7-17) mg/dL AST 52 H (14-36) U/L ALT 48 H (4-34) U/L Assessment and Plan (1) Transient cerebral ischemia Current Visit: Yes Status: Acute Code(s): G45.9 - TRANSIENT CEREBRAL ISCHEMIC ATTACK, UNSPECIFIED SNOMED Code(s): 026106761
[2023-11-09 11:25] VITALS: BP 141/75; PULSE 79
--- NOTE | 2023-11-09 13:38 | P.DS ---
Providers Date of admission: 11/06/23 22:53 Attending physician: Valdemar Lin MD Consults: 11/06/23 22:54 Consult Physician Routine Consulting Provider: Gregory Arrington Consult Reason/Comments: Stroke vs TIA Do you want consulting provider notified?: Yes Primary care physician: Philip Lee - Discharge Diagnosis(es) (1) Transient cerebral ischemia Status: Acute Hospital Course: Discharge diagnoses; Transient Ischemic Attack - MR Brain - no acute process - Started on aspirin and plavix for 21 days followed by aspirin indefinitely increased Lipitor, per neurology reccs - patient to follow up with PCP - Outpatient follow up in neurology Chronic conditions # Hypertension - continue home medication #Hyperlipidemia Continue home medication #GERD - continue home medication # Seasonal allergies Continue home medication Hospital course; Danisha Quijano 68-year-old female with past medical history of hypertension, hyperlipidemia presents with transient ischemic attack. Patient's symptoms began suddenly last evening around 7 PM with sweating and aphasia and facial motor deficit. She appeared to family with right-sided facial droop, right arm weakness and incoherent mumbling. Symptoms continued for 6 hours it was noted by EMS blood pressure to be 180/100. Vision remained intact and had no reported fall. She had no confusion or headache. Today she is back to her stated baseline with speech and muscle strength. Patient notes strong family history in father with multiple TIA. She reports no other symptoms at this time. Initial lab work done in the ER showed Hgb 10.8, BUN 29, Trop 3x neg Head CT - no acute process, mild chronic burden of small vessel disease CT angiogram head and neck neck slightly greater than 50% proximal right ICA stenosis, had shows no acute process stenosis or aneurysm Chest x-ray - no acute process - EKGno ST elevations or T wave abnormalities or arrhythmia noted 11-08-23 Patient seen at bedside, no further episodes of weakness, or aphasia. No other complaints. She is awaiting Echo and MR hetal. 11-08-22 Patient seen at bedside, no further episodes of weakness, or aphasia. No other complaints. MR Brain and echo results with no acute findings. PHYSICAL EXAMINATION: GENERAL: The patient is alert and oriented x3, not in any acute distress. Well developed, well nourished. HEENT: Pupils are round and equally reacting to light. EOMI. No scleral icterus. No conjunctival pallor. Normocephalic, atraumatic. No pharyngeal erythema. No thyromegaly. CARDIOVASCULAR: S1 and S2 present. No murmurs, rubs, or gallops. PULMONARY: Chest is clear to auscultation, no wheezing or crackles. ABDOMEN: Soft, nontender, nondistended, normoactive bowel sounds. No palpable organomegaly. MUSCULOSKELETAL: No joint swelling or deformity. EXTREMITIES: No cyanosis, clubbing, or pedal edema. NEUROLOGICAL: Right sided Planter flexion weakness 4/5 strength. Gross neurological examination did not reveal any other focal deficits. SKIN: No rashes. Attestation I have seen and examined this patient with my resident , discussed the same with the resident/LIVAN, and agree with the dictator's assessment and plan as written Neurology recommends discharging patient on aspirin and Plavix for 21 days followed by aspirin indefinitely Outpatient follow-up with neurology Dr. Gopi daniels Dictation was produced using [employer] dictation software. please excuse any grammatical, word or spelling errors. Patient Condition at Discharge: Good Plan - Discharge Summary Discharge Rx Participant: Yes New Discharge Prescriptions: New Aspirin 325 mg PO DAILY 30 Days #30 tab Atorvastatin [Lipitor] 40 mg PO DAILY 30 Days #30 tab Clopidogrel [Plavix] 75 mg PO DAILY 21 Days #21 tab Continue Omeprazole [PriLOSEC] 20 mg PO DAILY Loratadine [Claritin] 10 mg PO DAILY Multivitamins, Thera [Multivitamin (formulary)] 1 tab PO DAILY Vitamin C/Biotin [Hair, Skin and Nails Chew] 1 tab PO DAILY Vision Shield Supplement 1 tab PO DAILY Vitamin B Complex 1 cap PO DAILY Magnesium 250 mg PO HS Candesartan/Hydrochlorothiazid [Candesartan-Hctz 32-12.5 mg Tb] 1 tab PO DAILY Discontinued Ibuprofen [Motrin] 800 mg PO DAILY PRN PRN Reason: Pain Atorvastatin [Lipitor] 20 mg PO DAILY Ibuprofen [Motrin] 800 mg PO BID Discharge Medication List Omeprazole [PriLOSEC] 20 mg PO DAILY 10/29/13 [History] Loratadine [Claritin] 10 mg PO DAILY 03/31/14 [History] Candesartan/Hydrochlorothiazid [Candesartan-Hctz 32-12.5 mg Tb] 1 tab PO DAILY 11/06/23 [History] Magnesium 250 mg PO HS 11/06/23 [History] Multivitamins, Thera [Multivitamin (formulary)] 1 tab PO DAILY 11/06/23 [History] Vision Shield Supplement 1 tab PO DAILY 11/06/23 [History] Vitamin B Complex 1 cap PO DAILY 11/06/23 [History] Vitamin C/Biotin [Hair, Skin and Nails Chew] 1 tab PO DAILY 11/06/23 [History] Aspirin 325 mg PO DAILY 30 Days #30 tab 11/09/23 [Rx] Atorvastatin [Lipitor] 40 mg PO DAILY 30 Days #30 tab 11/09/23 [Rx] Clopidogrel [Plavix] 75 mg PO DAILY 21 Days #21 tab 11/09/23 [Rx] Follow up Appointment(s)/Referral(s): Philip Lee DO [Primary Care Provider] - 1-2 days Daryl Haile DO [STAFF PHYSICIAN] - 1 Week Patient Instructions/Handouts: Transient Ischemic Attack (DC) Activity/Diet/Wound Care/Special Instructions: take Aspirin and Plavix for 21 days followed by aspirin indefinitely Discharge Disposition: HOME SELF-CARE
--- NOTE | 2023-11-09 15:09 | P.PN ---
Subjective Progress Note Date: 11/09/23 I am following-up with patient and states her weakness in right leg is improving. Denies any new neurological issues. Objective - Vital Signs Vital signs: Vital Signs Temp 97.0 F L 11/09/23 08:00 Pulse 79 11/09/23 11:24 Resp 16 11/09/23 11:24 BP 141/75 11/09/23 11:24 Pulse Ox 93 L 11/09/23 11:24 FiO2 Intake & Output 11/08/23 11/09/23 11/09/23 18:59 06:59 18:59 Intake Total 218 540 840 Output Total 0 Balance 218 540 840 Weight 99.1 kg Intake: Oral 218 540 840 Output: Gastric Drainage 0 Urine 0 Stool 0 Urine/Stool Mix 0 Emesis 0 Oral Regurgitation 0 Other 0 Other: Voiding Method Toilet Toilet Toilet # Voids 3 2 0 # Bowel Movements 0 - Exam GENERAL: The patient is Sitting in a recliner chair and is not in acute distress. NEUROLOGICAL: Higher mental function: The patient is awake, alert, oriented to self, place and time. Patient is following commands. No aphasia and no neglect. Cranial nerves: The pupils are round, equal and reactive to light and accommodation. Visual glover are full to confrontation throughout. Extraocular movement is intact no nystagmus is noted. Facial sensation is normal to touch throughout. The facial strength is normal throughout. Hearing is normal bilaterally to hand rub. Tongue is midline and moved [id number] without any difficulty. No dysarthria is noted. Shoulder shrug is normal bilaterally. Motor: The strength is right lower extremity is 4+ to 5-. Otherwise 5 over 5 throughout. Normal tone and bulk. Cerebellum: Normal finger to nose bilaterally. Sensation: Sensation is normal to touch throughout. Reflexes (right/left): 2+ throughout. Plantars are downgoing bilaterally. Some of the workup during this hospital visit consisted of: Lipid panel as triglyceride is 115, cholesterol 162, LDL 77 and HDL is 61 HbA1c: 5.7 CT of the head is reported as mild chronic burden of chronic small vessel ischemic disease. No acute intracranial abnormality seen. I personally reviewed the CT and agree with the report. CT Angiography of the head is reported as no large vessel intracranial arterial occlusion, significant stenosis or aneurysm changes seen. CT angiography of the neck read as moderate just over 50% proximal right ICA stenosis. CT lumbar: No evidence for spinal fracture. Grade 1 anterolisthesis of L4 and L 5 no evidence for spondylosis. Mild multilevel degeneration changes of the spine. Routine EEG: Normal. 2D echo: Normal left ventricular size and systolic function. Mild mitral with mild to moderat tricuspid regurgitation and mild to moderate hypertension. MRI Brain: No evidence of intracranial mass, acute/subacute infarct or abnormal enhancement. Nonspecific white matter changes. likely related to small vessel ishcemic disease. - Labs CBC & Chem 7: 11/08/23 07:10 11/08/23 07:10 Assessment and Plan Assessment: This is a 68-year-old woman who present emergency department because of yesterday she felt she was sweating at around 7 PM and then difficulty getting her words out as well as was told by her family members she had a blank stare. When she was eval by EMS she had right arm weakness and right facial droop. Symptoms has improved but on my examination she had right lower extremity weakness. Likely TIA with symptoms of expressive aphasia, right facial droop and right- sided weakness and the patient continues to have right lower extremity weakness. CT lumbar does not explain her right lower extremity weakness. MRI Brain is negative for acute or subacute stroke. Mild to moderate Right ICA stenosis of just above 50% on CTA. This is asymptomatic and would not contribute patient's symptoms. Recurrent leg weakness and states has buckling of her feet and she had workup as an outpatient with EMG and was told she had nerve damage by her outpatient neurologist and feels there is improvement with physical therapy Bilateral knee replacement Underlying history of hypertension Hyperlipidemia Ex tobacco use and last use was 1998 Plan: Continue aspirin 325mg daily and Plavix 75 mg daily. Prior to this the patient was not on any antiplatelet. Recommend dual antiplatelet for 21 days and after 21 days stop Plavix but continue aspirin indefinitely continue Lipitor 40 mg daily for secondary stroke prophylaxis Patient declined any images of her cervical thoracic or lumbar spine because of her right leg weakness and she stated she has been having ongoing leg weakness with exertion and she followed up with Dr. Haile who spoke with EMG with nerve conduction study and told her had nerve damage. She will consider MRI as an outpatient and I notified her that she needs to follow-up with a neurologist as an outpatient for further management. Continue neurochecks Cardiac monitoring PT OT and PIPELINE EXECUTIVE are consulted Will defer the rest of the medical management to primary team For DVT prophylaxis: On subcu heparin 5000 units every 12 hours Plan discussed with the patient and primary team. There is no further neurological workup. Will sign off. Time with Patient: Less than 30
== END 2023-11-09 13:23 | disposition home or self-care (01) ==
LOC: EC 19:49 → 3SCARD 22:53
PROVIDERS: ADMIT Internal Medicine; ATTEND Internal Medicine
DX: I63.9 Cerebral infarction, unspecified (principal); E78.5 Hyperlipidemia, unspecified; I10 Essential (primary) hypertension; I65.21 Occlusion and stenosis of right carotid artery; J45.909 Unspecified asthma, uncomplicated; K21.9 Gastro-esophageal reflux disease without esophagitis; M79.7 Fibromyalgia; Z79.899 Other long term (current) drug therapy; Z87.891 Personal history of nicotine dependence; Z90.710 Acquired absence of both cervix and uterus; Z90.721 Acquired absence of ovaries, unilateral; Z96.653 Presence of artificial knee joint, bilateral
CPT/HCPCS: 96372 ×4; 96360; 96361; 99285; 36415; 95816; 93005; 93306; 97162; 97166; 92523; 80061; 80053 ×2; 80048; 82550; 83735; 84484 ×2; 85025 ×3; 85610; 85730; 83036; 71046; 72131; 70496; 70450; 70498; 70553; G0378 ×4; J1644 ×3; Q9967; A9585

== ENCOUNTER → 2024-01-28 | Outpatient (CLI) | payer MEDICARE ==
[2024-01-28 22:36] LABS: BUN/Creat Ratio 22.78 Ratio (12.00-20.00); Blood Urea Nitrogen 20.5 mg/dL (9.0-27.0); Calcium 9.6 mg/dL (8.7-10.3); Carbon Dioxide 24.8 mmol/L (21.6-31.8); Chloride 104 mmol/L (96-109); Creatine Kinase 123 U/L (26-186); Glucose 94 mg/dL (70-110); Magnesium 1.9 mg/dL (1.5-2.4); Potassium 4.5 mmol/L (3.5-5.5); Sodium 141 mmol/L (135-145)
== END | disposition home or self-care (01) ==
LOC: LABWHC1 14:45
PROVIDERS: ATTEND Psychiatry & Neurology Neurology
DX: M62.81 Muscle weakness (generalized) (principal); G57.10 Meralgia paresthetica, unspecified lower limb
CPT/HCPCS: 36415; 80048; 82550; 82607; 83735; 85652; 86618